=== PATIENT | female | born 1965 | race Caucasian/White ===

== ENCOUNTER 2017-06-05 08:32 | Emergency (ER) | payer BC ==
[2017-06-05] MEDS ORDERED: methylPREDNISolone Sod Succ/PF 125 MG/2 ML VIAL ONE (08:53)
[2017-06-05] MEDS ORDERED: hydrOXYzine 25 MG TAB ONE ×2 (08:53)
== END 2017-06-05 08:55 | disposition home or self-care (01) ==
LOC: BURERS 08:32
DX: L25.9 Unspecified contact dermatitis, unspecified cause (principal)
CPT/HCPCS: 96372; J2930